=== PATIENT | female | born 1975 | race Asian ===

== ENCOUNTER 2024-02-16 06:14 | Day surgery (SDC) | payer OTHER ==
[~2024-02-16] VITALS: Ht 157.5 cm; Wt 61.3 kg
[2024-02-16] MEDS ORDERED: ATOR10TA PO (07:28)
[2024-02-16] MEDS ORDERED: PROM6.2527 PO (07:29)
[2024-02-16] MEDS ORDERED: OMEG1CAP99 PO (07:31)
[2024-02-16] MEDS ORDERED: FentaNYL CITRATE PF 100 MCG/2 ML VIAL ONE (07:33)
[2024-02-16] MEDS ORDERED: MIDAZOLAM HCL 2 MG/2 ML VIAL ONE (07:33)
[2024-02-16] MEDS ORDERED: CHOL500050 PO (07:34)
[2024-02-16] MEDS ORDERED: CHOL50002 PO (07:34)
[2024-02-16] MEDS ORDERED: SODIUM CHLORIDE 0.9% 1,000 ML ONE (07:38)
[2024-02-16] MEDS: SODIUM CHLORIDE 0.9% 1,000 ML IV ONE (08:56)
[2024-02-16 09:18] VITALS: PULSE 74; RESP 24; O2SAT 100
[2024-02-16] MEDS ORDERED: MethylPREDNISolone SOD SUCC 125 MG/2 ML VIAL ONE (09:23)
[2024-02-16] MEDS: MethylPREDNISolone SOD SUCC 125 MG/2 ML VIAL IVP ONE (09:58)
== END 2024-02-16 14:12 | disposition home or self-care (01) ==
LOC: SURGERY 06:14
PROVIDERS: ATTEND Internal Medicine Critical Care Medicine
DX: R05.3 Chronic cough (principal); R04.2 Hemoptysis; R06.1 Stridor; J98.09 Other diseases of bronchus, not elsewhere classified; J84.10 Pulmonary fibrosis, unspecified; J98.8 Other specified respiratory disorders; E78.00 Pure hypercholesterolemia, unspecified; J45.909 Unspecified asthma, uncomplicated; Z86.16 Personal history of COVID-19; Z87.442 Personal history of urinary calculi; Z98.891 History of uterine scar from previous surgery; Z88.8 Allergy status to other drugs, medicaments and biological substances
CPT/HCPCS: 31623; 31624; 71045; 84703; 87015; 87070; 87101; 87206; 87220; J2250; J2919; J3010; J7030